=== PATIENT | female | born 1940 | race Caucasian/White ===

== ENCOUNTER → 2021-05-02 | Outpatient (CLI) | payer OTHER | END | disposition home or self-care (01) | LOC: LAB SHORT 15:49 | DX: L57.0 Actinic keratosis (principal) | CPT/HCPCS: 88305 ==

== ENCOUNTER → 2021-09-07 | Outpatient (CLI) | payer OTHER ==
[~2021-09-07] MED LIST: ALBU90OI INH; CINNAMON PO; IBUP200 PO; METF500 PO; MULVITA PO; NEBI5 PO; OCUVITE BLUE L1 EACH PO; TRIPLE FLEX PO; VITAMIN B125000 MC1 PO; ZOCOR20 MG PO
== END | disposition home or self-care (01) ==
LOC: LAB SHORT 09:40 → LAB 09:40
DX: B35.1 Tinea unguium (principal); L60.2 Onychogryphosis
CPT/HCPCS: 88305; 88313

== ENCOUNTER 2021-09-20 06:09 | Day surgery (SDC) | payer OTHER ==
[~2021-09-20] VITALS: Ht 160 cm; Wt 72.6 kg
--- NOTE | 2021-09-20 08:32 | NUR ---
09/20/21 0832 Jazmin Christianson PRIOR TO ARRIVING TO THE OR PATIENT ALSO RECEIVED VANCO 1 GM IN THE PREOP SETTING.
--- NOTE | 2021-09-20 18:18 | NUR ---
SHIFT SUMMARY PT POD #0 FOR L TOTAL HIP. GAUZE DRESSING IN PLACE AND CDI. PAIN HAS BEEN MINIMAL THIS SHIFT AND PT EXPERIENCED SOME NAUSEA AFTER RECEIVING PAIN MEDICATION. PT REPORTS THAT SHE REGULARLY GETS NAUSEOUS WHEN TAKING PAIN MEDICATION. PT WORKED WITH PHYSICAL AND OCCUPATIONAL THERAPY TODAY AND DID WELL. UP IN THE CHAIR FOR THE MAJORITY OF THE SHIFT. VSS.
[2021-09-21 05:14] LABS: BASOPHILS ABSOLUTE AUTO 0.01 K/mm3 (0.00-0.23); BASOPHILS PERCENT AUTO 0 % (0-2); EOSINOPHILS PERCENT AUTO 0 % (0-6); Hematocrit 29.4 % (33.0-51.0); Hemoglobin 10.2 g/dL (11.5-16.0); IMMATURE GRAN ABSOLUTE AUTO 0.04 K/mm3 (0.00-0.10); IMMATURE GRAN PERCENT AUTO 1 % (0-1); LYMPHOCYTES ABSOLUTE AUTO 1.06 K/mm3 (0.84-5.20); LYMPHOCYTES PERCENT AUTO 12 % (21-46); MONOCYTES ABSOLUTE AUTO 0.76 K/mm3 (0.16-1.47); MONOCYTES PERCENT AUTO 9 % (4-13); Mean Corpuscular HGB 32.3 pg (26.0-34.0); Mean Corpuscular HGB Conc 34.7 g/dL (31.5-36.5); Mean Corpuscular Volume 93 fL (80-100); Mean Platelet Volume 10.8 fL (9.1-12.4); NEUTROPHILS ABSOLUTE AUTO 6.97 K/mm3 (1.96-9.15); NEUTROPHILS PERCENT AUTO 79 % (41-73); Platelet Count 154 K/mm3 (150-400); RDW Coefficient Variation 12.8 % (11.7-14.2); RDW Standard Deviation 43.8 fL (35.1-46.3); Red Blood Cell Count 3.16 M/mm3 (3.80-5.20); White Blood Cell Count 8.84 K/mm3 (4.00-11.30)
[2021-09-21 05:52] LABS: Bun/Creatinine Ratio 24.7 (12.0-20.0); Calcium, Blood 8.2 mg/dL (8.5-10.1); Creatinine, Blood 0.77 mg/dL (0.40-1.00); Magnesium, Blood 1.6 mg/dL (1.6-2.4); Potassium, Blood 4.1 mmol/L (3.5-5.5)
[2021-09-21] MEDS ORDERED: ASPI81CH PO (12:14)
[2021-09-21] MEDS ORDERED: PROMETHAZINE12.5 M1 PT (12:15)
[2021-09-21] MEDS ORDERED: OXAYDO5 M1 PO (12:15)
[2021-09-21] MEDS ORDERED: TRAM50 PO (12:16)
[2021-09-21] MEDS ORDERED: SULTRIDS PO (12:16)
--- NOTE | 2021-09-21 12:58 | NUR ---
DISCHARGE SUMMARY PT POD #1 FOR L TOTAL HIP. DRESSING CHANGED TO AQUACEL BY SURGEON THIS AM. AQUACEL CDI. PT WORKED WITH PT/OT THIS AM AND DID WELL. NO PAIN OR NAUSEA THIS SHIFT. PRESCRIPTION FOR TRAMADOL PICKED UP BY FAMILY MEMBER. PRESCRIPTION FOR PHENERGAN FAXED TO [facility]. PT DC'D HOME WITH FAMILY.
== END 2021-09-21 12:51 | disposition home or self-care (01) ==
LOC: ORSCMMR 06:09 → ORD 07:30 → ORSCMMR 10:40 → SURS 10:40 → ORSCMMR 09-21 12:51
PROVIDERS: Orthopaedic Surgery
PROC: 0SRB0JA Replacement of Left Hip Joint with Synthetic Substitute, Uncemented, Open Approach (ICD-10-PCS; principal; 2021-09-20 07:30)
PROC: 8E0YXBZ Computer Assisted Procedure of Lower Extremity (ICD-10-PCS; principal; 2021-09-20 07:30)
DX: M16.0 Bilateral primary osteoarthritis of hip (principal); M87.9 Osteonecrosis, unspecified; I10 Essential (primary) hypertension; E78.5 Hyperlipidemia, unspecified; E11.9 Type 2 diabetes mellitus without complications; Z79.84 Long term (current) use of oral hypoglycemic drugs; Z79.899 Other long term (current) drug therapy; Z85.3 Personal history of malignant neoplasm of breast
CPT/HCPCS: 36415; 72170; 80048; 82947; 83735; 85025; 88300; 97110; 97116; 97162; 97166; 97530; 97535; 97535-CO; A9270; C1713; C1776; J0171; J0735; J1100; J1170; J1815; J1885; J2405; J2704; J2765; J2795; J3010; J3370; J7030; J7050; J7060; J7120

== ENCOUNTER → 2022-01-31 | Outpatient (CLI) | payer OTHER ==
[~2022-01-31] MED LIST changes: +ASPI81CH PO; +OXAYDO5 M1 PO; +PROMETHAZINE12.5 M1 PT; +SULTRIDS PO; +TRAM50 PO
== END ==
LOC: LAB SHORT 11:57 → PLD 11:57
DX: D48.5 Neoplasm of uncertain behavior of skin (principal)
CPT/HCPCS: 88305

== ENCOUNTER → 2022-05-01 | Outpatient (CLI) | payer OTHER ==
[2022-05-01 16:57] LABS: Source, Urine Clean Catch
[2022-05-01 18:19] LABS: Appearance, Urine Clear (Clear); Bilirubin, Urine Neg (Neg); Blood, Urine Neg (Neg); Color, Urine Yellow (P-Yellow); Glucose Qualitative, Urine Neg (Neg); Ketones, Urine Neg (Neg); Leukocyte Esterase, Urine Neg (Neg); Nitrite, Urine Neg (Neg); Protein, Urine Neg (Neg); Urobilinogen, Urine NORM (Normal)
== END | disposition home or self-care (01) ==
LOC: LAB SHORT 16:56
PROVIDERS: Obstetrics & Gynecology
DX: N39.3 Stress incontinence (female) (male) (principal)
CPT/HCPCS: 81003

== ENCOUNTER → 2022-06-13 | Outpatient (CLI) | payer OTHER ==
[2022-06-14 08:56] LABS: Candida species (DNA Probe) Negative (NEGATIVE); G. vaginalis (DNA Probe) Positive (NEGATIVE); T. vaginalis (DNA Probe) Negative (NEGATIVE)
== END | disposition home or self-care (01) ==
LOC: LAB SHORT 15:30 → LAB 15:30
PROVIDERS: Obstetrics & Gynecology
DX: N76.0 Acute vaginitis (principal)
CPT/HCPCS: 87480; 87510; 87660

== ENCOUNTER → 2022-11-12 | Outpatient (CLI) | payer OTHER ==
[~2022-11-12] MED LIST changes: +ALEVE220 MG PO; +CALCIUM CIT 311 EAC7 PO; +GABA100 PO; +MOVE FREE PO
[2022-11-13 11:02] LABS: Candida species (DNA Probe) Negative (NEGATIVE); G. vaginalis (DNA Probe) Negative (NEGATIVE); T. vaginalis (DNA Probe) Negative (NEGATIVE)
== END | disposition home or self-care (01) ==
LOC: LAB 12:19 → LAB SHORT 12:19
PROVIDERS: Obstetrics & Gynecology
DX: N76.0 Acute vaginitis (principal)
CPT/HCPCS: 87480; 87510; 87660

== ENCOUNTER 2022-12-12 06:05 | Day surgery (SDC) | payer OTHER ==
[2022-12-12] VITALS (16 sets, daily range): BP systolic 114–152; BP diastolic 55–102
[~2022-12-12] VITALS: Ht 165.1 cm; Wt 69.7 kg
--- NOTE | 2022-12-12 07:42 | NUR ---
PRE-SURGERY NOTE PT A&OX4, BREATHING RA, DAUGHTER AT BEDSIDE, NO ACUTE COCNERNS. Ambulatory in [facility] clear T/O to Auscultation. Patient confirms NPO status and agrees with scheduled surgery. Pre-Op teaching done. Pt verbalizes understanding.
--- NOTE | 2022-12-12 11:07 | NUR ---
PATIENT ARRIVED FROM PACU TODAY AT 1045. POD 0 RIGHT POSTERIOR HIP PATIENT IS A&OX4. VS ARE WNL AND IS ON RA. PATIENT REPORTS 6/10 PAIN AND WAS GIVEN IV TORADOL AND PO TRAMADOL PER EMAR. HER RIGHT HIP HAS GAUZE WITH FOAM TAPE THAT IS C/D/I. DENIES NUMBNESS OR TINGLING IN ALL EXTREMITIES. CAN MOVE ALL FINGERS AND TOES WHEN ASKED. SHE IS TOLERATING SMALL AMOUNTS OF PO INTAKE. PATIENT IS LAYING IN BED WITH FAMILY AT BEDSIDE AND CALL LIGHT IN REACH.
--- NOTE | 2022-12-12 15:46 | NUR ---
SHIFT SUMMARY: POD 0 RIGHT TOTAL HIP - POSTERIOR PATIENT IS A&OX4. VS ARE WNL AND IS ON RA. PAIN IS MANAGED WITH PO TRAMADOL, TYLENOL, AND IV TORADOL. HER RIGHT HIP HAS FOAM WITH GAUZE THAT IS C/D/I. SHE DENIES NUMBNESS AND TINGLING THROUGHOUT EXTREMITIES. PATIENT IS TOLERATING PO INTAKE AND IS VOIDING. PATIENT DID WORK WITH PHYSICAL AND OCCUPATIONAL THERAPY TODAY. SHE IS A SBA WITH FWW AND GAIT BELT WITH SMALL REMINDERS OF POSTERIOR HIP PRECAUTIONS. PATIENT IS SITTING IN THE RECLINER WITH CALL LIGHT IN REACH.
[2022-12-13 00:20] VITALS: BP 129/62
[2022-12-13 03:44] VITALS: BP 116/58
[2022-12-13 03:49] LABS: BASOPHILS ABSOLUTE AUTO 0.01 K/mm3 (0.00-0.23); BASOPHILS PERCENT AUTO 0 % (0-2); EOSINOPHILS ABSOLUTE AUTO 0.01 K/mm3 (0.00-0.68); EOSINOPHILS PERCENT AUTO 0 % (0-6); Hematocrit 28.8 % (33.0-51.0); Hemoglobin 9.7 g/dL (11.5-16.0); IMMATURE GRAN ABSOLUTE AUTO 0.03 K/mm3 (0.00-0.10); IMMATURE GRAN PERCENT AUTO 0 % (0-1); LYMPHOCYTES PERCENT AUTO 19 % (21-46); MONOCYTES ABSOLUTE AUTO 0.72 K/mm3 (0.16-1.47); MONOCYTES PERCENT AUTO 9 % (4-13); Mean Corpuscular HGB 31.5 pg (26.0-34.0); Mean Corpuscular HGB Conc 33.7 g/dL (31.5-36.5); Mean Corpuscular Volume 94 fL (80-100); Mean Platelet Volume 10.1 fL (9.1-12.4); NEUTROPHILS ABSOLUTE AUTO 5.86 K/mm3 (1.96-9.15); NEUTROPHILS PERCENT AUTO 71 % (41-73); Platelet Count 174 K/mm3 (150-400); RDW Coefficient Variation 13.3 % (11.7-14.2); RDW Standard Deviation 45.7 fL (35.1-46.3); Red Blood Cell Count 3.08 M/mm3 (3.80-5.20); White Blood Cell Count 8.23 K/mm3 (4.00-11.30)
[2022-12-13 04:14] LABS: Bun/Creatinine Ratio 21.1 (12.0-20.0); Calcium, Blood 7.7 mg/dL (8.5-10.1); Creatinine, Blood 0.86 mg/dL (0.40-1.00); Magnesium, Blood 1.6 mg/dL (1.6-2.4); Potassium, Blood 4.4 mmol/L (3.5-5.5)
--- NOTE | 2022-12-13 04:15 | NUR ---
SHIFT SUMMARY PO DAY 1 R KAYLEE PT ABLE TO AMBULATE TO THE BATHRROM WITH ASST. PT REPORTED PAIN MEDICATED PER EMAR. DRESSING TO THE R HIP C/D/I. POLAR PACK ON HIP, LAYING IN BED, SLEEPING IN BED ALL NIGHT. NO OTHER CONCERNS AT THIS TIME. CALL LIGHT WITHIN REACH.
[2022-12-13 07:46] VITALS: BP 111/56
== END 2022-12-13 11:15 | disposition home or self-care (01) ==
LOC: ORSCMMR 06:05 → ORD 07:30 → SURS 10:37 → ORSCMMR 12-13 11:15
PROVIDERS: Orthopaedic Surgery
PROC: 0SR90JA Replacement of Right Hip Joint with Synthetic Substitute, Uncemented, Open Approach (ICD-10-PCS; principal; 2022-12-12 07:30)
DX: M16.11 Unilateral primary osteoarthritis, right hip (principal); Z96.642 Presence of left artificial hip joint; E11.9 Type 2 diabetes mellitus without complications; Z79.899 Other long term (current) drug therapy; Z79.84 Long term (current) use of oral hypoglycemic drugs; Z85.3 Personal history of malignant neoplasm of breast
CPT/HCPCS: 36415; 72170; 80048; 82947; 83735; 85025; 97110; 97116; 97162; 97166; 97530; 97535; A9270; C1713; C1776; J0171; J0690; J0735; J1100; J1885; J2371; J2405; J2704; J2795; J3010; J3370; J7120